=== PATIENT | female | born 1935 | race Caucasian/White ===

== ENCOUNTER → 2022-07-24 16:16 | Outpatient (REF) | payer MEDICARE, SELFPAY | LOC: RAD 16:16 | PROVIDERS: ATTENDING PHYSICIAN Family Medicine | DX: I77.9 Disorder of arteries and arterioles, unspecified (principal); R42 Dizziness and giddiness; R40.20 Unspecified coma | CPT/HCPCS: 93880 ==

== ENCOUNTER 2023-07-13 11:27 | Emergency (ER) | payer MEDICARE, SELFPAY ==
[2023-07-13 11:34] VITALS: BP 158/78
--- NOTE | 2023-07-13 13:26 | ED.GENMED ---
History of Present Illness
General
Chief Complaint: Eye Problems
Source: patient
Exam Limitations: none
Time Seen by Provider: 07/13/23 13:06
Travel History
Have you had any contact with someone who has COVID-19?: No
Do you have any symptoms of coronavirus? Fever > 100 degrees, chills, cough, shortness of breath, sore throat, loss of taste or smell, muscle aches, or headache?: No
History of Present Illness
History of Present Illness:
Irritation and burning to the eye started early this morning. No known trauma. No foreign body noted. No trouble seeing out of the eye. No deep eye pain. No temporal pain.
Past History
Past History
ED Past Medical History: HTN, Hypercholesterolemia, Valvular disease and Other (Previous history of angioedema of the tongue)
ED Past Surgical History: Cardiac (Bovine aortic valve replacement, left carotid endarterectomy) and Gynecological
Social History
Tobacco: Former smoker (Quit 2014)
Alcohol: Occasional
Personal: Other (Seperated)
Living: alone
Employment: Retired
Family History
Family History: Other (Noncontributory)
Review of Systems
Review of Systems
All Other Systems: Not applicable
Phy Exam
Physical Exam
Physical Exam:
General: Nontoxic appearing in no distress
Skin: Warm and dry, no rash
Neuro: Alert, nontoxic, grossly nonfocal. Gait normal
Psychiatric: Good eye contact and appropriate
Eye: Orbits grossly normal. No periorbital swelling. No pain with eye motion. Conjunctiva minimally irritated. No obvious foreign body. Slit-lamp exam shows linear superficial abrasions to the top half of the cornea. Consistent with a eyelid
foreign body. No dendrite. Positive fluorescein at this location. Small pingueculum at 3:00. Eyelid everted but difficult. Very few eyelashes to hold onto. The eye was swept under the eyelid with no obvious foreign body
Course
Vital Signs
Initial and Last Documented VS:
Initial Vital Signs
Temp Pulse Resp BP Pulse Ox
97.5 F 90 20 158/78 98
07/13/23 11:34 07/13/23 11:34 07/13/23 11:34 07/13/23 11:34 07/13/23 11:34
Last Documented Vital Signs
Temp Pulse Resp BP Pulse Ox
97.5 F 90 20 158/78 98
07/13/23 11:34 07/13/23 11:34 07/13/23 11:34 07/13/23 11:34 07/13/23 11:34
*Critical Care Note
Total Time (30-74mins, 75-104mins- exclusive of procedures): Not Applicable
Update Note
Update Note:
Inner upper eyelid foreign body causing superficial abrasions. Eyelid was swept. Irrigation. Antibiotics and follow-up.
ED Attending Note
-
Portions of this chart may have been created with voice recognition software.� Occasional wrong word or��sound alike� substitutions may have occurred due to the inherent limitations of voice recognition software.
Discharge Plan
Departure
Patient Disposition: Home (Routine Discharge)
Date of Disposition: 07/13/23
Time of Disposition: 13:28
Patient with high blood pressure during this ER visit?: Yes
Discharge Problem:
Multiple superficial corneal abrasions, Likely secondary to upper eyelid foreign
Instructions: Corneal Abrasion (DC), Foreign Body in Eye (DC), BLOOD PRESSURE
Prescriptions:
No Action
simvastatin [Zocor] 40 MG tablet
40 mg PO HS
multivitamin with folic acid [Tab-A-Miley] 1 TABLET tablet
1 tab PO DAILY
Otc Allergy Med
1 tab PO DAILY
Vitamin D3 (cholecalciferol):
1 tab PO DAILY
diphenhydramine HCl [Banophen] 25 MG capsule
25 mg PO BIDPRN PRN (Reason: allergies)
Referrals:
Acquaviva,Christin, DO [Family Provider] -
Mallory Phoenix MD [Active] - Follow up in 2-3 days
Activity Restrictions/Additional Instructions:
Use drops 4 times per day
Call your neonatal intensive care unit nurse or the neonatal intensive care unit nurse listed here for follow-up in 1 to 2 days
Return sooner with increased pain visual changes swelling drainage or any other concerning symptoms
Interventions
Interventions:
*Risk Screen - Suicide Last Done: 07/13/23 12:53
*General Assessment Last Done: 07/13/23 12:53
*Neglect/Abuse Screening Last Done: 07/13/23 12:53
ED- Fall Risk Assessment Last Done: 07/13/23 12:54
*ED COVID-19 Vaccine History Last Done: 07/13/23 12:53
Discharge Date and Time
Print Language: INDONESIAN
[2023-07-13] MEDS: OCUFLOX 1 DROP OPHTH (13:38)
== END 2023-07-13 13:59 | disposition home or self-care (01) ==
LOC: EMR 11:27
PROVIDERS: EMERGENCY PHYSICIAN Emergency Medicine; FAMILY PHYSICIAN Family Medicine
DX: T15.00XA Foreign body in cornea, unspecified eye, initial encounter (principal); W44.9XXA Unspecified foreign body entering into or through a natural orifice, initial encounter; E78.00 Pure hypercholesterolemia, unspecified; I10 Essential (primary) hypertension; Z87.891 Personal history of nicotine dependence; I38 Endocarditis, valve unspecified; Z95.3 Presence of xenogenic heart valve
CPT/HCPCS: 99282

== ENCOUNTER → 2023-09-18 09:06 | Outpatient (REF) | payer MEDICARE, SELFPAY ==
[2023-09-18 10:44] LABS: ALT (SGPT) 23 U/L (0-35); AST (SGOT) 26 U/L (14-36); Albumin 4.4 g/dl (3.5-5.0); Alkaline Phosphatase 60 U/L (38-126); Direct Bilirubin 0.1 mg/dl (0.0-0.4); HDL Cholesterol 53 mg/dl; LDL Cholesterol, Calculated 74 mg/dl; Total Bilirubin 0.5 mg/dl (0.2-1.3); Total Cholesterol 170 mg/dl (50-199); Total Protein 6.8 g/dl (6.3-8.2); Triglyceride 219 mg/dl (10-149); Very Low Density Lipoprotein 43 mg/dl (0-30)
[2023-09-18 11:27] LABS: Microalbumin, Random Urine 3.2 mg/dl (0.6-1.7)
== END ==
LOC: REG 09:06
PROVIDERS: ATTENDING PHYSICIAN Family Medicine
DX: E11.65 Type 2 diabetes mellitus with hyperglycemia (principal); E78.2 Mixed hyperlipidemia
CPT/HCPCS: 36415; 80061; 80076; 82043; 82570; 83036

== ENCOUNTER → 2023-11-09 10:16 | Outpatient (REF) | payer MEDICARE, SELFPAY | LOC: RAD 10:16 | PROVIDERS: ATTENDING PHYSICIAN Family Medicine | DX: I48.0 Paroxysmal atrial fibrillation (principal) | CPT/HCPCS: 93880 ==

== ENCOUNTER 2024-01-03 12:38 | Emergency (ER) | payer MEDICARE, SELFPAY ==
[2024-01-03 12:41] VITALS: BP 123/77
[2024-01-03 14:30] LABS: Urine Albumin Trace (Neg - Trace); Urine Bilirubin Negative (Negative); Urine Character Slightly Cloudy (Clear); Urine Color Yellow; Urine Glucose Negative (Negative); Urine Ketone Negative (Negative); Urine Leukocyte 2+ (Negative); Urine Nitrite Negative (Negative); Urine Occult Blood Negative (Negative); Urine Specific Gravity 1.025 (<1.030); Urine Urobilinogen Negative (Neg - 1+)
[2024-01-03 14:39] LABS: Urine Squamous Cell >30 /LPF (Few); Urine Urothelial Cell 0-2 /LPF (FEW)
[2024-01-03 14:40] LABS: Urine White Cell 30-40 /HPF (0-5)
[2024-01-03 14:41] LABS: Urine Bacteria Moderate (Negative)
[2024-01-03 14:42] LABS: % Basophils 0.9 % (0-2); % Eosinophils 4.9 % (0-6); % Immature Granulocytes 0.2 % (0-0.5); % Lymphocytes 24.2 % (20.5-51.1); % Monocytes 9.4 % (1.7-9.3); % Neutrophils 60.4 % (42.2-75.2); Absolute Basophils 0.1 10^3/uL (0-0.2); Absolute Eosinophils 0.4 10^3/uL (0-0.7); Absolute Lymphocytes 2.1 10^3/uL (1.2-3.4); Absolute Monocytes 0.8 10^3/uL (0.1-0.6); Absolute Neutrophils 5.2 10^3/uL (1.4-6.5); Hemoglobin 12.6 g/dL (12.0-16.0); Mean Corp Hgb Conc. 32.3 g/dL (33.0-37.0); Mean Corpuscular Hgb 30.1 pg (27.0-31.0); Mean Corpuscular Volume 93.3 fL (81.0-99.0); Mean Platelet Volume 10.1 fL (7.4-10.4); Nucleated Red Blood Cells % 0 %; Platelet Count 218 10^3/uL (130-400); Red Blood Cell Count 4.18 10^6/uL (4.20-5.40); Red Cell Dist. Width 12.9 % (11.5-14.5); White Blood Cell Count 8.7 10^3/uL (4.8-10.8)
[2024-01-03 15:02] LABS: ALT (SGPT) 19 U/L (0-35); AST (SGOT) 21 U/L (14-36); Albumin 4.2 g/dl (3.5-5.0); Alkaline Phosphatase 63 U/L (38-126); Blood Urea Nitrogen 22 mg/dl (7-17); Calcium 9.2 mg/dl (8.4-10.2); Carbon Dioxide 28 mmol/L (22-30); Chloride 100 mmol/L (98-107); Glucose 165 mg/dl (70-99); Potassium 4.5 mmol/L (3.5-5.1); Sodium 142 mmol/L (135-145); Total Bilirubin 0.3 mg/dl (0.2-1.3); eGFR > 60.00
--- NOTE | 2024-01-03 15:03 | ED.GENMED ---
History of Present Illness
<Cristel Jean Baptiste PA-C - Last Filed: 01/03/24 19:08>
General
Chief Complaint: Flank Pain
Source: patient
Exam Limitations: none
Time Seen by Provider: 01/03/24 14:28
Nursing documentation reviewed up to this point in time: agreed with
History of Present Illness
History of Present Illness:
Patient is an 88-year-old female with history hyperlipidemia, valvular disorder presenting to the emergency department with right low back pain and dysuria. Patient states right low back pain initially started 2 days ago when she woke up. Pain has
become more severe and then today she noticed burning when she urinated. Patient denies any hematuria or urinary frequency/hesitancy. Patient denies any fever, chills, nausea/vomiting. No chest pain or shortness of breath. Patient is concerned
that she may have either a kidney infection or a kidney stone.
Past History
<Cristel Jean Baptiste PA-C - Last Filed: 01/03/24 19:08>
Past History
ED Past Medical History: HTN, Hypercholesterolemia, Valvular disease and Other (Previous history of angioedema of the tongue)
ED Past Surgical History: Cardiac (Bovine aortic valve replacement, left carotid endarterectomy) and Gynecological
Social History
Tobacco: Former smoker (Quit 2014)
Alcohol: Occasional
Personal: Other (Seperated)
Living: alone
Employment: Retired
Family History
Family History: Other (Noncontributory)
Review of Systems
<Cristel Jean Baptiste PA-C - Last Filed: 01/03/24 19:08>
Review of Systems
Allergies reviewed?: Yes
All Other Systems: ROS reviewed and negative except as documented in HPI and ROS
Phy Exam
<Cristel Jean Baptiste PA-C - Last Filed: 01/03/24 19:08>
Physical Exam
Physical Exam:
Vitals: Patient's vital signs are stable. Afebrile
General: Patient is well appearing, no acute distress. Nontoxic appearing
Skin: Warm and dry, no rashes or lesions
Head: Normocephalic, atraumatic
Eyes: Sclera nonicteric. EOMs intact. No nystagmus.
Throat: Protecting airway
Neck: Normal ROM, no cervical spine tenderness, no meningismus
Cardiac: Regular rate and rhythm, no murmurs.
Pulm: Normal respiratory effort, no wheezes, rales, rhonchi heard on exam.
Abdomen: Abdomen soft no abdominal tenderness. No rebound tenderness or guarding
Back: No midline spinal tenderness. Mild right CVA tenderness. No rash, ecchymoses of right back/
Extremities: No evidence of cyanosis or edema. Palpable DP pulses
Neuro: AAOx3. Grossly intact.
Psychiatric: Normal affect.
Course
<Cristel Jean Baptiste PA-C - Last Filed: 01/03/24 19:08>
Orders/Labs/Results
Orders:
Orders
01/03/24 14:16
Urinalysis Reflex To Culture Urgent
Date Specimen was Collected: 01/03/24
Time Specimen was Collected: 14:14
Urine Microscopic Reflex Cult Urgent
Urine Culture Urgent
PENNY Source: U
Specimen Description:
Date Specimen was Collected: 01/03/24
Time Specimen was Collected: 14:14
01/03/24 14:24
Complete Blood Count/With Diff Urgent
Comprehensive Metabolic Panel Urgent
01/03/24 15:02
Acetaminophen [Tylenol] 1,000 mg PO NOW STA
01/03/24 15:09
Abdomen/Pelvis wo Contrast CT [CT Abd/pelvis Wo Iv Cont] Urgent
Comment:
Reason For Exam: Right flank pain, infected urine
01/03/24 17:29
Electrocardiogram (*1) Urgent
Reason for Study: Other
Other Reason for Exam: QT
EKG- Treatment ONCE
01/03/24 18:08
Ketorolac [Toradol] 15 mg IV NOW STA
01/03/24 18:53
Ciprofloxacin HCl [Cipro] 500 mg PO NOW STA
Abnormal Lab Results
01/03/24 01/03/24
14:16 14:24
RBC 4.18 L 10^6/uL
(4.20-5.40)
MCHC 32.3 L g/dL
(33.0-37.0)
Absolute Monos (auto) 0.8 H 10^3/uL
(0.1-0.6)
Monocytes % 9.4 H %
(1.7-9.3)
BUN 22 H mg/dl
(7-17)
Glucose 165 H mg/dl
(70-99)
Leukocyte Esterase Rfl 2+ A
(Negative)
Urine RBC 3-6 A /HPF
(0-2)
Urine WBC (Reflex) 30-40 A /HPF
(0-5)
Urine Bacteria (Reflex) Moderate A
(Negative)
01/03/24 14:24
01/03/24 14:24
Vital Signs
Initial and Last Documented VS:
Initial Vital Signs
Temp Pulse Resp Pulse Ox
98.1 F 107 18 98
01/03/24 12:40 01/03/24 12:40 01/03/24 12:40 01/03/24 12:40
Last Documented Vital Signs
Temp Pulse Resp BP Pulse Ox
98.1 F 82 18 148/85 98
01/03/24 18:59 01/03/24 18:59 01/03/24 18:59 01/03/24 18:59 01/03/24 18:59
<Althea Barreto MD - Last Filed: 01/03/24 17:30>
Orders/Labs/Results
Orders:
Orders
01/03/24 14:16
Urinalysis Reflex To Culture Urgent
Date Specimen was Collected: 01/03/24
Time Specimen was Collected: 14:14
Urine Microscopic Reflex Cult Urgent
Urine Culture Urgent
PENNY Source: U
Specimen Description:
Date Specimen was Collected: 01/03/24
Time Specimen was Collected: 14:14
01/03/24 14:24
Complete Blood Count/With Diff Urgent
Comprehensive Metabolic Panel Urgent
01/03/24 15:02
Acetaminophen [Tylenol] 1,000 mg PO NOW STA
01/03/24 15:09
Abdomen/Pelvis wo Contrast CT [CT Abd/pelvis Wo Iv Cont] Urgent
Comment:
Reason For Exam: Right flank pain, infected urine
01/03/24 17:29
Electrocardiogram (*1) Urgent
Reason for Study: Other
Other Reason for Exam: QT
EKG- Treatment ONCE
01/03/24 18:08
Ketorolac [Toradol] 15 mg IV NOW STA
01/03/24 18:53
Ciprofloxacin HCl [Cipro] 500 mg PO NOW STA
Abnormal Lab Results
01/03/24 01/03/24
14:16 14:24
RBC 4.18 L 10^6/uL
(4.20-5.40)
MCHC 32.3 L g/dL
(33.0-37.0)
Absolute Monos (auto) 0.8 H 10^3/uL
(0.1-0.6)
Monocytes % 9.4 H %
(1.7-9.3)
BUN 22 H mg/dl
(7-17)
Glucose 165 H mg/dl
(70-99)
Leukocyte Esterase Rfl 2+ A
(Negative)
Urine RBC 3-6 A /HPF
(0-2)
Urine WBC (Reflex) 30-40 A /HPF
(0-5)
Urine Bacteria (Reflex) Moderate A
(Negative)
01/03/24 14:24
01/03/24 14:24
Vital Signs
Initial and Last Documented VS:
Initial Vital Signs
Temp Pulse Resp Pulse Ox
98.1 F 107 18 98
01/03/24 12:40 01/03/24 12:40 01/03/24 12:40 01/03/24 12:40
Last Documented Vital Signs
Temp Pulse Resp BP Pulse Ox
98.1 F 82 18 148/85 98
01/03/24 18:59 01/03/24 18:59 01/03/24 18:59 01/03/24 18:59 01/03/24 18:59
<Cristel Jean Baptiste PA-C - Last Filed: 01/03/24 19:08>
MDM/Problems Addressed
Differential Diagnosis Includes:
Not limited to: UTI, pyelonephritis, nephrolithiasis, zoster, muscle strain, appendicitis, etc.
MDM/Problems Addressed:
88-year-old female presenting with right low back pain and dysuria over the past 2 days. No associated fever, chills, rash, chest pain, or shortness of breath. Patient's vital signs are stable, she is afebrile on arrival to emergency department.
Physical exam as above. Patient is well-appearing, conversational and nontoxic. She does have mild right CVA tenderness. Abdomen is soft and nontender. Cardio/pulmonary assessment unremarkable. Patient is perfusing well. There is no rash to
suggest zoster. Labs and urinalysis were obtained in triage. No leukocytosis. Chemistry without any clinically significant abnormalities. No renal insufficiency. Urine, although contaminated, does show evidence of infection. Given associated
flank pain�concern for possible pyelonephritis. Will obtain noncontrast CT of abdomen/pelvis to rule out kidney stone. Will give Tylenol.
Update: Patient does report mild pain following Tylenol. CT report pending.
Update 6:45 PM: CT report reviewed. No evidence for hydronephrosis or nephroureterolithiasis. Patient is well-appearing and afebrile. Patient is adamant that she does not want to stay in the hospital. Will start patient on course of antibiotics
for pyelonephritis. Patient does have multiple allergies including cephalosporins, penicillins, sulfa. Did obtain EKG with normal QTc interval. Given multiple antibiotic allergies�will initiate ciprofloxacin very strict return precautions
discussed with patient including any signs of worsening infection. Patient will follow-up with primary care in a few days for further evaluation. Patient seen with attending physician. Patient stable for discharge.
Chronic conditions affecting care:
N/A
Acute Exacerbation and/or Progression of Chronic Illness:
N/A
<Cristel Jean Baptiste PA-C - Last Filed: 01/03/24 19:08>
*Radiology
Radiology exam reviewed: preliminary read by ED provider and radiology read reviewed (Obstructing kidney stone or hydronephrosis)
*Pulse Oximetry
Patient hypoxic: no
*EKG
Interpreted by ED Provider?: Yes
EKG Intrepretation Date: 01/03/24
Interpretation: abnormal
Comparison EKG: no comparison EKG present
Heart Rate: 77
Rate: normal
Rhythm: sinus and sinus arrhythmia
[place]: normal axis
Interval: normal QT interval
Ischemia: no ischemia
*Legal Billing Specialist Interpretation
Rate: Legal Billing Specialist- N/A
*Critical Care Note
Total Time (30-74mins, 75-104mins- exclusive of procedures): Not Applicable
ED Attending Note
<Cristel Jean Baptiste PA-C - Last Filed: 01/03/24 19:08>
-
Portions of this chart may have been created with voice recognition software.� Occasional wrong word or��sound alike� substitutions may have occurred due to the inherent limitations of voice recognition software.
<Althea Barreto MD - Last Filed: 01/03/24 17:30>
ED Attending Note
Patient seen and examined by attending physician: Yes
I performed the substantive portion of visit, reviewed & personally made and approve the management plan that is documented in note by myself or TOPHER.: Yes
ED Attending Note:
Patient appears nontoxic. She is fully awake alert. Lungs are clear. Abdomen is soft and nontender. Patient adamantly does not want to stay in the hospital. She did not even want to stay for the CAT scan, however, we did explain to her that we
want to make sure she does not have a kidney stone or any sign of significant renal issue. Patient agreeable to staying for the CAT scan but adamantly wants to go home after the CAT scan is done.
Discharge Plan
Departure
Patient Disposition: Home (Routine Discharge)
Date of Disposition: 01/03/24
Time of Disposition: 18:54
Patient with high blood pressure during this ER visit?: No
Discharge Problem:
Pyelonephritis
Instructions: Flank Pain (DC), Urinary Tract Infection, Adult ED
Prescriptions:
New
ciprofloxacin HCl 500 mg tablet
500 mg PO BID 7 Days Qty: 14 0RF
No Action
simvastatin [Zocor] 40 MG tablet
40 mg PO HS
multivitamin with folic acid [Tab-A-Miley] 1 TABLET tablet
1 tab PO DAILY
Otc Allergy Med
1 tab PO DAILY
Vitamin D3 (cholecalciferol):
1 tab PO DAILY
diphenhydramine HCl [Banophen] 25 MG capsule
25 mg PO BIDPRN PRN (Reason: allergies)
Referrals:
Christin Ibrahim, DO [Family Provider] - Follow up in 2-3 days
Activity Restrictions/Additional Instructions:
RETURN TO THE EMERGENCY DEPARTMENT WITH ANY FEVERS, CHILLS, NAUSEA/VOMITING, ABDOMINAL PAIN, WORSENING BACK PAIN, WEAKNESS/FATIGUE, DIFFICULTY URINATING, WORSENING IN CURRENT SYMPTOMS, OR ANY OTHER CONCERNS
-As discussed�your CT scan did not show any evidence of a kidney stone. You likely have a kidney infection.
-A prescription for antibiotic has been sent to your pharmacy. You should take this twice a day for the next 7 days. You did receive your first dose in the emergency department tonight and should resume tomorrow morning.
-It is important stay well-hydrated. You can take Tylenol and or Aleve as needed for pain at home. You can apply heating pad.
-You should follow-up with your primary care provider in a few days for further evaluation and to ensure that symptoms are improving.
Monitor your symptoms closely and return to the emergency department any acute worsening/new symptoms or any other concerns
Interventions
Interventions:
*Risk Screen - Suicide Last Done: 01/03/24 12:41
*General Assessment Last Done: 01/03/24 19:07
*Neglect/Abuse Screening Last Done: 01/03/24 12:41
ED- Fall Risk Assessment Last Done: 01/03/24 19:07
*ED COVID-19 Vaccine History Last Done: 01/03/24 19:07
*Nursing Disposition Last Done: 01/03/24 19:07
NQ-Gnbcgi-Aomflrzgum Assessment Last Done: 01/03/24 19:07
ED-Female Genitourinary Assessment Last Done: 01/03/24 19:07
Discharge Date and Time
Print Language: CZECH
[2024-01-03] MEDS: TYLENOL 1000 MG PO (15:08)
[2024-01-03] MEDS: TORADOL 15 MG IV (18:14)
[2024-01-03 18:59] VITALS: BP 148/85
[2024-01-03] MEDS: CIPRO 500 MG PO (19:02)
== END 2024-01-03 19:08 | disposition home or self-care (01) ==
LOC: EMR 12:38
PROVIDERS: Student in an Organized Health Care Education/Training Program; EMERGENCY PHYSICIAN Emergency Medicine; FAMILY PHYSICIAN Family Medicine
DX: N13.6 Pyonephrosis (principal); E78.00 Pure hypercholesterolemia, unspecified; I38 Endocarditis, valve unspecified; I10 Essential (primary) hypertension; Z87.891 Personal history of nicotine dependence; Z95.3 Presence of xenogenic heart valve
CPT/HCPCS: 99284; 96374; 74176; 80053; 81003; 81015; 85025; 87086; 93005